=== PATIENT | male | born 1960 | race Caucasian/White ===

== ENCOUNTER 2021-01-27 00:54 | Emergency (ER) | payer BC, SELFPAY ==
[2021-01-27 00:57] VITALS: BP 132/87; PULSE 79; RESP 18; TEMP 36.2; O2SAT 100
--- NOTE | 2021-01-27 00:57 | ED.ALLEREA ---
HPI - Allergic Reaction General Chief complaint: Allergic Reaction Stated complaint: Allergic RXN Time Seen by Provider: 01/27/21 00:56 History of Present Illness HPI narrative: 60 yo male presents to the ED for a rash. Rahs appeared about 4 days ago. Started on trunk neck and legs. He now has lesions on his hands as well. They are pruritic, although his hands also hurt. He was mowing lawns prior to onet. No tick bites, fever, wounds. Related Data Allergies Allergy/AdvReac Type Severity Reaction Status Date / Time No Known Allergies Allergy Verified 01/27/21 01:04 Review of Systems Review of Systems: All systems reviewed & are unremarkable except as noted in HPI and below Constitutional: Constitutional: Denies chills and Denies fever(s) Cardiovascular: Cardiovascular: Denies chest pain Respiratory: Respiratory: Denies dyspnea Gastrointestinal: Gastrointestinal: Denies abdominal pain and Denies nausea Musculoskeletal: Musculoskeletal: Denies back pain and Denies arthralgias Integumentary/Breasts: Skin/Breast: Reports rash Neurologic: Denies numbness and Denies weakness [facility] Past Medical History Medical History Benign essential HTN Hypothyroidism (acquired) Mixed hyperlipidemia TRINITY (obstructive sleep apnea) Family History Family History Mother Family history of malignant neoplasm, Onset Age: 76 Social History Social History Smoking packs per day: 2.5 Smoking cigarettes per day: 50.0 Years smoked: 35 Smoking pack-years: 87.50 Smoking status: Former smoker Tobacco type: cigarettes Second hand tobacco smoke exposure: No Smoking end date: 06/24/09 Alcohol intake: former Alcohol use details: quit 31 years ago Substance use: never Substance use type: does not use Gender identity (if verbalized by the patient): Male Exam Const: General: healthy appearing, no acute distress and alert Orientation/consciousness: patient oriented x3 HENMT: Head: normal to inspection Neck: Neck: normal visual inspection and no lymphadenopathy Chest: Chest palpation & inspection: no tenderness Resp: Effort & Inspection: normal respiratory effort Auscultation: clear to auscultation bilaterally, no rales, no rhonchi and no wheezes Cardio: Jugular venous distension: no JVD Rate: regular rate Rhythm: regular rhythm Heart sounds: no murmurs GI: Inspection: non-distended GI Palp: Yes Soft to palpation and No Tenderness to palpation present (GI) Skin: Other: macular rash to back, neck, waist line, and legs. Vesicular lesions forming on palms. Neuro: General: patient oriented x3 and moves all extremities Speech: normal speech Extrem: General: no edema Psych: Appearance: well kempt Affect: normal affect Course Vital Signs Vital signs: Vital Signs Temperature 36.2 C L 01/27/21 00:57 Pulse Rate 79 01/27/21 00:57 Respiratory Rate 18 01/27/21 00:57 Blood Pressure 132/87 01/27/21 00:57 Pulse Oximetry 100 01/27/21 00:57 Temperature 36.2 C L 01/27/21 00:57 Pulse Rate 79 01/27/21 00:57 Respiratory Rate 18 01/27/21 00:57 Blood Pressure 132/87 01/27/21 00:57 Pulse Oximetry 100 01/27/21 00:57 MDM - Allergic Reaction MDM Narrative Medical decision making narrative: exam and history most consistent with contact dermatitis, likely poison karen Differential Diagnosis Differential diagnosis: Likely allergic reaction, contact dermatitis and viral enanthem Discharge Plan Discharge Clinical Impression: Contact dermatitis Qualifiers: Contact dermatitis type: unspecified Contact dermatitis trigger: unspecified trigger Qualified Code(s): L25.9 - Unspecified contact dermatitis, unspecified cause Patient Disposition: Home, Self-Care Condition: Stable Instructions: Contact Pete
[2021-01-27] MEDS: predniSONE 20 MG TABLET 60 MG PO (01:12)
== END 2021-01-27 02:12 | disposition home or self-care (01) ==
LOC: ANHED 01:39
PROVIDERS: Emergency Provider Emergency Medicine; PCP Family Medicine
DX: L25.9 Unspecified contact dermatitis, unspecified cause (principal); I10 Essential (primary) hypertension; E03.9 Hypothyroidism, unspecified; E78.2 Mixed hyperlipidemia; G47.33 Obstructive sleep apnea (adult) (pediatric); Z87.891 Personal history of nicotine dependence
CPT/HCPCS: 99283; J7512

== ENCOUNTER 2022-10-01 09:13 | Outpatient (CLI) | payer BC, SELFPAY ==
--- NOTE | ~2022-10-01 | US_ITS ---
EXAMINATION:US venous doppler LE LT INDICATION:Localized swelling. Lump on left leg. TECHNIQUE: Multiple grayscale, color flow and Doppler images of the left lower extremity deep venous systems were obtained and reviewed. COMPARISON:No prior studies for comparison. FINDINGS: The common femoral, superficial femoral and popliteal veins demonstrate normal respiratory variation, augmentation and compressibility. Color flow is also seen within the posterior tibial, pe roneal, greater saphenous and profunda veins. There is a small superficial fluid collection in the ar ea of palpable concern anterior mid calf measuring 1.8 x 0.2 x 1.4 cm, likely small hematoma. IMPRESSION: 1: No lower extremity deep venous thrombosis. Reviewed, dictated and finalized at location B.
== END 2022-10-01 09:14 | disposition home or self-care (01) ==
PROVIDERS: PCP Family Medicine; Visit Provider Nurse Practitioner Gerontology
DX: R22.42 Localized swelling, mass and lump, left lower limb (principal)
CPT/HCPCS: 93971

== ENCOUNTER 2025-05-06 12:30 | Outpatient (CLI) | payer BC, SELFPAY ==
[2025-05-06 13:14] LABS: Hematocrit 48.7 % (42.0-52.0); Hemoglobin 16.8 g/dL (14.0-18.0); Mean Corpuscular HGB Conc 34.5 g/dl (32-36); Mean Corpuscular Hemoglobin 30.2 pg (26-34); Mean Corpuscular Volume 87.6 fl (80-100); Platelet Count Result 242 k/mm3 (150-375); Red Blood Count 5.56 M/mm3 (4.6-6.20); White Blood Count 6.6 K/mm3 (4.5-10.0)
[2025-05-06 13:36] LABS: Alanine Aminotransferase 36 U/L (6-50); Albumin Level 4.4 g/dL (3.5-5.1); Alkaline Phosphatase 79 U/L (38-126); Anion Gap 8 mmol/L (4-12); Aspartate Amino Transferase 26 U/L (17-59); Bilirubin,Total 0.9 mg/dL (0.2-1.3); Blood Urea Nitrogen 9 mg/dL (9-20); Calcium 9.1 mg/dL (8.4-10.2); Carbon Dioxide 27 mmol/L (22-30); Chloride 104 mmol/L (98-107); Estimated Glomerular Filt Rate > 60; Glucose 103 mg/dL (65-110); Potassium 4.3 mmol/L (3.4-5.0); Sodium 139 mmol/L (137-145); Total Protein 7.3 g/dL (6.3-8.2)
[2025-05-06 14:08] LABS: Thyroid Stimulating Hormone 0.158 uIU/mL (0.465-4.680)
== END 2025-05-06 12:31 | disposition home or self-care (01) ==
LOC: ANHLAB 12:32
PROVIDERS: PCP Family Medicine; Visit Provider Physician Assistant Medical
DX: E03.9 Hypothyroidism, unspecified (principal); I10 Essential (primary) hypertension; R42 Dizziness and giddiness
CPT/HCPCS: 36415; 80053; 84443; 85027